=== PATIENT | female | born 1990 | race Caucasian/White ===

== ENCOUNTER 2017-04-18 22:43 | Emergency (ER) | payer OTHER ==
[2017-04-18 23:00] VITALS: TEMP 99.3
[2017-04-18] MEDS ORDERED: ONDANSETRON 4 MG/2 ML VIAL IVP STA (23:40)
[2017-04-18] MEDS ORDERED: KETOROLAC 30 MG/ML 1 ML VIAL IVP STA (23:40)
[2017-04-19 00:08] LABS: Amorphous Sediment,Urine Rare /hpf; Appearance,Urine Cloudy (Clear); Bilirubin,Urine Negative (Negative); Glucose,Urine (UA) Negative (Negative); Ketones,Urine Negative (Negative); Leukocyte Esterase,Urine Negative (Negative); Mucus,Urine Few /hpf; Nitrite,Urine Negative (Negative); Particle Count 17308; Protein,Urine Trace (Negative); Specific Gravity,Urine 1.019 (1.001-1.035); Squamous Epithelial Cell,Urine 7 /hpf (0-4); UA Billing (MACRO vs. MICRO) MICRO; Urobilinogen,Urine <2.0 mg/dL (<2.0)
--- NOTE | 2017-04-19 00:08 | ED ---
Abdominal Pain HPI - General Chief Complaint: Abdominal Pain Stated Complaint: Abd Pain Time Seen by Provider: 04/18/17 23:08 Source: patient, RN notes reviewed Mode of arrival: ambulatory Limitations: no limitations - History of Present Illness Initial Comments: Patient is a 27-year-old female since emergency room for evaluation of abdominal pain. Patient states pain began about 3 days ago. Patient states pain has been getting worse. Patient states having pain in her right lower quadrant. Patient states been nauseous with vomiting. Patient denies fevers or chills. Patient denies chest pain or shortness of breath. Patient denies any pain or burning during urination, trouble urinating or blood in urine. Patient denies history of abdominal surgeries. Patient denies abnormal vaginal discharge or vaginal discomfort. Patient denies history of STDs. - Related Data Previous Rx's Medication Instructions Recorded Ondansetron Odt [Zofran Odt] 4 mg PO Q8HR PRN #12 tab 04/19/17 Allergies Allergy/AdvReac Type Severity Reaction Status Date / Time cat dander Allergy Unknown Verified 04/18/17 23:10 cinnamon Allergy Dyspnea Verified 04/18/17 23:10 onion Allergy Unknown Verified 04/18/17 23:10 pollen extracts Allergy Unknown Verified 04/18/17 23:10 laundry soap Allergy Rash/Hives Uncoded 04/18/17 23:10 Review of Systems ROS Statement: Those systems with pertinent positive or pertinent negative responses have been documented in the HPI. ROS Other: All systems not noted in ROS Statement are negative. Past Medical History Past Medical History: Asthma, Myocardial Infarction ([place]) Additional Past Medical History / Comment(s): SVT, pt had [place] at 18 yrs old states she has had 8 CA's since 18 y/o, 2 heart ablations Last Myocardial Infarction Date:: 2008 History of Any Multi-Drug Resistant Organisms: None Reported Past Surgical History: Ablation Additional Past Surgical History / Comment(s): cardiac ablation x 2, emergency d and c for demise at age 19 Additional Past Anesthesia/Blood Transfusion Reaction / Comment(s): pt advised to have photoengraving helper consulted for any aneshesia Past Psychological History: Depression Smoking Status: Current every day smoker Past Alcohol Use History: Occasional Past Drug Use History: Marijuana - Past Family History Father Additional Family Medical History / Comment(s): Grandfather of heart attack Brother(s) Family Medical History: Myocardial Infarction ([place]), Supraventricular Tachycardia (SVT) Additional Family Medical History / Comment(s): [place] at 19 yrs old Sister(s) Additional Family Medical History / Comment(s): sister has extra heart beat General Exam - General Exam Comments Initial Comments: Laying in exam room, no acute distress. Limitations: no limitations General appearance: alert, in no apparent distress Head exam: Present: atraumatic, normocephalic, normal inspection Eye exam: Present: normal appearance ENT exam: Present: normal exam Neck exam: Present: normal inspection Respiratory exam: Present: normal lung sounds bilaterally. Absent: respiratory distress Cardiovascular Exam: Present: regular rate, normal rhythm, normal heart sounds GI/Abdominal exam: Present: soft, tenderness (RLQ), normal bowel sounds. Absent : distended, guarding, rebound, rigid External exam: Present: normal external exam Speculum exam: Present: other (strings from IUD protruding from cervix). Absent : vaginal discharge By manual exam: Present: normal by manual exam Extremities exam: Present: normal inspection Back exam: Present: normal inspection Neurological exam: Present: alert, oriented X3, CN II-XII intact, normal gait Psychiatric exam: Present: normal affect, normal mood Skin exam: Present: warm, dry, intact, normal color. Absent: rash Course Vital Signs 04/18/17 04/19/17 22:56 02:59 Temperature 99.3 F Pulse Rate 71 60 Respiratory 18 20 Rate Blood Pressure 126/76 108/55 O2 Sat by Pulse 98 99 Oximetry Medical Decision Making - Medical Decision Making patient is a 27-year-old female presents to the emergency room for evaluation of abdominal pain. WBC noted to be elevated. Patient does state she has been vomiting all day. CT abdomen/pelvis negative for any acute or concerning findings. Pelvic exam performed. No tenderness on pelvic exam. No cervical motion tenderness. No adnexal tenderness. Patient states she is feeling better after medications given. Patient is advised to follow-up with primary care provider for further evaluation. Patient states she understands everything that was discussed with her. Return parameters discussed. Case discussed with Dr. Alvares. - Lab Data Result diagrams: 04/18/17 23:59 04/18/17 23:59 Lab Results 04/18/17 04/18/17 04/18/17 Range/Units 23:35 23:35 23:59 WBC (3.8-10.6) k/uL RBC (3.80-5.40) m/uL Hgb (11.4-16.0) gm/dL Hct (34.0-46.0) % MCV (80.0-100.0) fL MCH (25.0-35.0) pg MCHC (31.0-37.0) g/dL RDW (11.5-15.5) % Plt Count (150-450) k/uL Neutrophils % % Lymphocytes % % Monocytes % % Eosinophils % % Basophils % % Neutrophils # (1.3-7.7) k/uL Lymphocytes # (1.0-4.8) k/uL Monocytes # (0-1.0) k/uL Eosinophils # (0-0.7) k/uL Basophils # (0-0.2) k/uL Sodium 140 (137-145) mmol/L Potassium 3.8 (3.5-5.1) mmol/L Chloride 106 (98-107) mmol/L Carbon Dioxide 28 (22-30) mmol/L Anion Gap 6 mmol/L BUN 12 (7-17) mg/dL Creatinine 0.50 L (0.52-1.04) mg/dL Est GFR (MDRD) Af Amer >60 (>60 ml/min/1.73 sqM) Est GFR (MDRD) Non-Af >60 (>60 ml/min/1.73 sqM) Glucose 93 (74-99) mg/dL Calcium 8.9 (8.4-10.2) mg/dL Magnesium 1.7 (1.6-2.3) mg/dL Total Bilirubin 0.1 L (0.2-1.3) mg/dL AST 23 (14-36) U/L ALT 36 (9-52) U/L Alkaline Phosphatase 71 (38-126) U/L Total Protein 6.3 (6.3-8.2) g/dL Albumin 3.6 (3.5-5.0) g/dL Amylase 43 (30-110) U/L Lipase 78 (23-300) U/L Urine Color Yellow Urine Appearance Cloudy H (Clear) Urine pH 7.0 (5.0-8.0) Ur Specific [place] 1.019 (1.001-1.035) Urine Protein Trace H (Negative) Urine Glucose (UA) Negative (Negative) Urine Ketones Negative (Negative) Urine Blood Negative (Negative) Urine Nitrite Negative (Negative) Urine Bilirubin Negative (Negative) Urine Urobilinogen <2.0 (<2.0) mg/dL Ur Leukocyte Esterase Negative (Negative) Ur Squamous Epith Cells 7 H (0-4) /hpf Amorphous Sediment Rare H (None) /hpf Urine Mucus Few H (None) /hpf Urine HCG, Qual Not Detected (Not Detectd) Trichomonas Ag (Rapid) (Negative) 04/18/17 04/19/17 Range/Units 23:59 02:35 WBC 18.9 H (3.8-10.6) k/uL RBC 4.10 (3.80-5.40) m/uL Hgb 14.0 (11.4-16.0) gm/dL Hct 41.2 (34.0-46.0) % MCV 100.6 H (80.0-100.0) fL MCH 34.1 (25.0-35.0) pg MCHC 34.0 (31.0-37.0) g/dL RDW 13.1 (11.5-15.5) % Plt Count 284 (150-450) k/uL Neutrophils % 83 % Lymphocytes % 9 % Monocytes % 5 % Eosinophils % 2 % Basophils % 0 % Neutrophils # 15.6 H (1.3-7.7) k/uL Lymphocytes # 1.7 (1.0-4.8) k/uL Monocytes # 1.0 (0-1.0) k/uL Eosinophils # 0.4 (0-0.7) k/uL Basophils # 0.0 (0-0.2) k/uL Sodium (137-145) mmol/L Potassium (3.5-5.1) mmol/L Chloride (98-107) mmol/L Carbon Dioxide (22-30) mmol/L Anion Gap mmol/L BUN (7-17) mg/dL Creatinine (0.52-1.04) mg/dL Est GFR (MDRD) Af Amer (>60 ml/min/1.73 sqM) Est GFR (MDRD) Non-Af (>60 ml/min/1.73 sqM) Glucose (74-99) mg/dL Calcium (8.4-10.2) mg/dL Magnesium (1.6-2.3) mg/dL Total Bilirubin (0.2-1.3) mg/dL AST (14-36) U/L ALT (9-52) U/L Alkaline Phosphatase (38-126) U/L Total Protein (6.3-8.2) g/dL Albumin (3.5-5.0) g/dL Amylase (30-110) U/L Lipase (23-300) U/L Urine Color Urine Appearance (Clear) Urine pH (5.0-8.0) Ur Specific [place] (1.001-1.035) Urine Protein (Negative) Urine Glucose (UA) (Negative) Urine Ketones (Negative) Urine Blood (Negative) Urine Nitrite (Negative) Urine Bilirubin (Negative) Urine Urobilinogen (<2.0) mg/dL Ur Leukocyte Esterase (Negative) Ur Squamous Epith Cells (0-4) /hpf Amorphous Sediment (None) /hpf Urine Mucus (None) /hpf Urine HCG, Qual (Not Detectd) Trichomonas Ag (Rapid) Negative (Negative) - Radiology Data Radiology results: report reviewed, image reviewed Disposition Clinical Impression: Abdominal pain Disposition: HOME SELF-CARE Condition: Good Instructions: Abdominal Pain (ED) Additional Instructions: Please follow up with primary care provider in 1-2 days for reevaluation. If any new symptom arises or symptoms worsen, return to ER as soon as possible. Prescriptions: Ondansetron Odt [Zofran Odt] 4 mg PO Q8HR PRN #12 tab PRN Reason: Pain Referrals: Luis Enrique Martinez MD [Primary Care Provider] - 1-2 days Time of Disposition: 02:49
[2017-04-19 00:11] LABS: Basophils % (A) 0 %; CH 34.4; CHCM 34.4; Eosinophils # (A) 0.4 k/uL (0-0.7); Eosinophils % (A) 2 %; HCT 41.2 % (34.0-46.0); Luc % (Auto) 1; Lymphocytes # (A) 1.7 k/uL (1.0-4.8); Lymphocytes % (A) 9 %; MCH 34.1 pg (25.0-35.0); MCV 100.6 fL (80.0-100.0); Mean Platelet Volume 8.6; Monocytes % (A) 5 %; Neutrophils # (A) 15.6 k/uL (1.3-7.7); Neutrophils % (A) 83 %; RDW 13.1 % (11.5-15.5); WBC 18.9 k/uL (3.8-10.6); WBC (Perox) 18.46
[2017-04-19 00:21] LABS: ALT 36 U/L (9-52); AST 23 U/L (14-36); Alkaline Phosphatase 71 U/L (38-126); Amylase 43 U/L (30-110); Anion Gap 6 mmol/L; Blood Urea Nitrogen 12 mg/dL (7-17); Calcium 8.9 mg/dL (8.4-10.2); Carbon Dioxide 28 mmol/L (22-30); Chloride 106 mmol/L (98-107); Glucose 93 mg/dL (74-99); Magnesium 1.7 mg/dL (1.6-2.3); Non-African American GFR(MDRD) >60 (>60 ml/min/1.73 sqM); Potassium 3.8 mmol/L (3.5-5.1); Sodium 140 mmol/L (137-145); Total Bilirubin 0.1 mg/dL (0.2-1.3); Total Protein 6.3 g/dL (6.3-8.2)
[2017-04-19] MEDS ORDERED: RX INFO: IV CONTRAST WAS GIVEN 1 EACH MISC MISCELLANE PRN (00:44)
[2017-04-19] MEDS ORDERED: SODIUM CHLORIDE 0.9% 1,000 ML IV ONE (00:46)
--- NOTE | 2017-04-19 01:57 | CT ---
EXAM: CT Abdomen and Pelvis With Intravenous Contrast CLINICAL HISTORY: Per technologist worsening umbilical abdominal pain for 3 days, low-grade fever, elevated WBC, negative hCG. TECHNIQUE: Axial computed tomography images of the abdomen and pelvis with intravenous contrast. CTDI is 5.30 mGy and DLP is 465.10 mGy-cm. This CT exam was performed using one or more of the following dose reduction techniques: automated exposure control, adjustment of the mA and/or kV according to patient size, and/or use of iterative reconstruction technique. Coronal and sagittal reconstructions are performed. COMPARISON: None available. FINDINGS: Lower thorax: No acute findings. ABDOMEN: Liver: Unremarkable. No mass. Gallbladder and bile ducts: Unremarkable. No calcified stones. No ductal dilation. Pancreas: Unremarkable. No mass. No ductal dilation. Spleen: Unremarkable. No splenomegaly. Adrenals: Unremarkable. No mass. Kidneys and ureters: Unremarkable. No solid mass. No hydronephrosis. Stomach and bowel: Unremarkable. No obstruction. No mucosal thickening. Appendix: Normal. PELVIS: Bladder: Unremarkable. No mass. Reproductive: T-shaped IUD appears to be in place.. 2.1 cm right adnexal cyst. ABDOMEN and PELVIS: Intraperitoneal space: Unremarkable. No free air. No significant fluid collection. Bones/joints: No acute fracture. No dislocation. Soft tissues: Unremarkable. Vasculature: Unremarkable. No abdominal aortic aneurysm. Lymph nodes: Unremarkable. No enlarged lymph nodes. IMPRESSION: No acute findings.
[2017-04-19 03:00] VITALS: BP 108/55; PULSE 60; RESP 20
== END 2017-04-19 03:01 | disposition home or self-care (01) ==
LOC: EC 22:43
DX: R10.31 Right lower quadrant pain (principal); R11.2 Nausea with vomiting, unspecified; F17.200 Nicotine dependence, unspecified, uncomplicated; Z91.018 Allergy to other foods; Z91.048 Other nonmedicinal substance allergy status
CPT/HCPCS: 99284; 96374; 96375; 96361; 36415; 80053; 87591; 87491; 82150; 83690; 83735; 85025; 81001; 81025; 87808; 87070; 74177; J2405; J1885; Q9967; 87205

== ENCOUNTER 2017-12-11 11:05 | Observation (INO) | payer OTHER ==
[2017-12-11] MEDS ORDERED: ASPIRIN 81 MG PO STA (11:48)
--- NOTE | 2017-12-11 11:50 | ED ---
General Adult HPI - General Chief complaint: Chest Pain Stated complaint: chest pain Time Seen by Provider: 12/11/17 11:41 Source: patient, RN notes reviewed Mode of arrival: wheelchair Limitations: no limitations - History of Present Illness Initial comments: Patient 27-year-old female who presents emergency room today with a chief complaint of chest pain that began approximately an hour ago. She does admit to a sharp type pain. Her chest. Patient states that he feels similar to pain that she's had in the past with her SVT. She doesn't that she had an ablation done moist. Admits to a history of previous heart attack. States 2 at the age of 18 and 2 at 19. 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 States she recently moved back to the area has not followed up with cardiology and approximately 3 years. - Related Data Home Medications Medication Instructions Recorded Confirmed Levonorgestrel [Mirena] 1 implant VAGINAL [id number] 12/11/17 12/11/17 Allergies Allergy/AdvReac Type Severity Reaction Status Date / Time cat dander Allergy Unknown Verified 12/11/17 11:40 cinnamon Allergy Dyspnea Verified 12/11/17 11:40 onion Allergy Unknown Verified 12/11/17 11:40 pollen extracts Allergy Unknown Verified 12/11/17 11:40 laundry soap Allergy Rash/Hives Uncoded 12/11/17 11:13 Review of Systems ROS Statement: Those systems with pertinent positive or pertinent negative responses have been documented in the HPI. ROS Other: All systems not noted in ROS Statement are negative. Past Medical History Past Medical History: Asthma, Myocardial Infarction ([place]) Additional Past Medical History / Comment(s): SVT, pt had [place] at 18 yrs old states she has had 8 AZ's since 18 y/o, 2 heart ablations Last Myocardial Infarction Date:: 2008 History of Any Multi-Drug Resistant Organisms: None Reported Past Surgical History: Ablation Additional Past Surgical History / Comment(s): cardiac ablation x 2, emergency d and c for demise at age 19 Additional Past Anesthesia/Blood Transfusion Reaction / Comment(s): pt advised to have post office manager consulted for any aneshesia Past Psychological History: Depression Smoking Status: Current every day smoker Past Alcohol Use History: Occasional Past Drug Use History: Marijuana - Past Family History Father Additional Family Medical History / Comment(s): Grandfather of heart attack Brother(s) Family Medical History: Myocardial Infarction ([place]), Supraventricular Tachycardia (SVT) Additional Family Medical History / Comment(s): [place] at 19 yrs old Sister(s) Additional Family Medical History / Comment(s): sister has extra heart beat General Exam - General Exam Comments Initial Comments: General: The patient is awake and alert, in no distress, and does not appear acutely ill. Eye: Pupils are equal, round and reactive to light, extra-ocular movements are intact. No nystagmus. There is normal conjunctiva bilaterally. No signs of icterus. Ears, nose, mouth and throat: There are moist mucous membranes and no oral lesions. Neck: The neck is supple, there is no tenderness or JVD. Cardiovascular: There is a regular rate and rhythm. No murmur, rub or gallop is appreciated. Respiratory: Lungs are clear to auscultation, respirations are non-labored, breath sounds are equal. No wheezes, stridor, rales, or rhonchi. Musculoskeletal: Normal ROM, no tenderness. Strength 5/5. Sensation intact. Pulses equal bilaterally 2+. Neurological: A&O x 3. CN II-XII intact, There are no obvious motor or sensory deficits. Coordination appears grossly intact. Speech is normal. Skin: Skin is warm and dry and no rashes or lesions are noted. Psychiatric: Cooperative, appropriate mood & affect, normal judgment. Limitations: no limitations Course Vital Signs 12/11/17 12/11/17 12/11/17 11:11 12:10 13:22 Temperature 98.1 F Pulse Rate 86 96 75 Respiratory 20 16 16 Rate Blood Pressure 134/86 132/81 129/74 O2 Sat by Pulse 99 99 99 Oximetry EKG Findings - EKG Comments: EKG Findings:: EKG performed at 1132: Normal sinus rhythm at 79 bpm. DE interval 164. QRS 102. QT/QTc 416/477. No acute ST changes. Medical Decision Making - Medical Decision Making 1327: Patient reexamined at this time shows no signs of distress. She is currently pain-free at this time. Patient was given aspirin one sublingual nitro here the emergency room. Patient's chest x-rays negative. Her labs been reviewed initial set of cardiac enzymes are negative. She admits to history of cardiac disease. Patient's symptoms started hour prior to arrival. Patient will be admitted for serial enzymes and consult cardiology. - Lab Data Result diagrams: 12/11/17 12:06 12/11/17 12:06 Lab Results 12/11/17 12/11/17 12/11/17 Range/Units 12:06 12:06 12:06 WBC 10.1 (3.8-10.6) k/uL RBC 4.75 (3.80-5.40) m/uL Hgb 15.6 (11.4-16.0) gm/dL Hct 43.5 (34.0-46.0) % MCV 91.7 (80.0-100.0) fL MCH 32.9 (25.0-35.0) pg MCHC 35.8 (31.0-37.0) g/dL RDW 12.1 (11.5-15.5) % Plt Count 303 (150-450) k/uL Neutrophils % 76 % Lymphocytes % 15 % Monocytes % 6 % Eosinophils % 1 % Basophils % 0 % Neutrophils # 7.7 (1.3-7.7) k/uL Lymphocytes # 1.5 (1.0-4.8) k/uL Monocytes # 0.7 (0-1.0) k/uL Eosinophils # 0.1 (0-0.7) k/uL Basophils # 0.0 (0-0.2) k/uL PT (9.0-12.0) sec INR (<1.2) APTT (22.0-30.0) sec Sodium 143 (137-145) mmol/L Potassium 3.8 (3.5-5.1) mmol/L Chloride 104 (98-107) mmol/L Carbon Dioxide 21 L (22-30) mmol/L Anion Gap 18 mmol/L BUN 13 (7-17) mg/dL Creatinine 0.60 (0.52-1.04) mg/dL Est GFR (CKD-EPI)AfAm >90 (>60 ml/min/1.73 sqM) Est GFR (CKD-EPI)NonAf >90 (>60 ml/min/1.73 sqM) Glucose 90 (74-99) mg/dL Calcium 10.4 H (8.4-10.2) mg/dL Magnesium 1.7 (1.6-2.3) mg/dL Total Bilirubin 1.2 (0.2-1.3) mg/dL AST 21 (14-36) U/L ALT 26 (9-52) U/L Alkaline Phosphatase 76 (38-126) U/L Total Creatine Kinase 59 (30-135) U/L CK-MB (CK-2) 0.9 (0.0-2.4) ng/mL CK-MB (CK-2) Rel Index 1.5 Troponin I <0.012 (0.000-0.034) ng/mL Total Protein 8.2 (6.3-8.2) g/dL Albumin 4.7 (3.5-5.0) g/dL Urine HCG, Qual (Not Detectd) 12/11/17 12/11/17 Range/Units 12:06 12:06 WBC (3.8-10.6) k/uL RBC (3.80-5.40) m/uL Hgb (11.4-16.0) gm/dL Hct (34.0-46.0) % MCV (80.0-100.0) fL MCH (25.0-35.0) pg MCHC (31.0-37.0) g/dL RDW (11.5-15.5) % Plt Count (150-450) k/uL Neutrophils % % Lymphocytes % % Monocytes % % Eosinophils % % Basophils % % Neutrophils # (1.3-7.7) k/uL Lymphocytes # (1.0-4.8) k/uL Monocytes # (0-1.0) k/uL Eosinophils # (0-0.7) k/uL Basophils # (0-0.2) k/uL PT 10.2 (9.0-12.0) sec INR 1.0 (<1.2) APTT 25.4 (22.0-30.0) sec Sodium (137-145) mmol/L Potassium (3.5-5.1) mmol/L Chloride (98-107) mmol/L Carbon Dioxide (22-30) mmol/L Anion Gap mmol/L BUN (7-17) mg/dL Creatinine (0.52-1.04) mg/dL Est GFR (CKD-EPI)AfAm (>60 ml/min/1.73 sqM) Est GFR (CKD-EPI)NonAf (>60 ml/min/1.73 sqM) Glucose (74-99) mg/dL Calcium (8.4-10.2) mg/dL Magnesium (1.6-2.3) mg/dL Total Bilirubin (0.2-1.3) mg/dL AST (14-36) U/L ALT (9-52) U/L Alkaline Phosphatase (38-126) U/L Total Creatine Kinase (30-135) U/L CK-MB (CK-2) (0.0-2.4) ng/mL CK-MB (CK-2) Rel Index Troponin I (0.000-0.034) ng/mL Total Protein (6.3-8.2) g/dL Albumin (3.5-5.0) g/dL Urine HCG, Qual Not Detected (Not Detectd) Disposition Clinical Impression: Chest pain Disposition: [facility] Condition: Stable Referrals: None,Stated [Primary Care Provider] - 1-2 days Time of Disposition: 13:35
[2017-12-11] MEDS: NITROGLYCERIN SL TABS 0.4 MG TAB SUBLINGUAL STA ×2 (11:59→12:08)
[2017-12-11 12:31] LABS: Basophils % (A) 0 %; Eosinophils # (A) 0.1 k/uL (0-0.7); Eosinophils % (A) 1 %; HCT 43.5 % (34.0-46.0); HGB 15.6 gm/dL (11.4-16.0); Lymphocytes # (A) 1.5 k/uL (1.0-4.8); Lymphocytes % (A) 15 %; MCH 32.9 pg (25.0-35.0); MCHC 35.8 g/dL (31.0-37.0); MCV 91.7 fL (80.0-100.0); Mean Platelet Volume 7.4; Monocytes # (A) 0.7 k/uL (0-1.0); Monocytes % (A) 6 %; Neutrophils # (A) 7.7 k/uL (1.3-7.7); Neutrophils % (A) 76 %; Platelet Count 303 k/uL (150-450); RBC 4.75 m/uL (3.80-5.40); RDW 12.1 % (11.5-15.5); WBC 10.1 k/uL (3.8-10.6)
[2017-12-11 12:41] LABS: Partial Thromboplastin Time 25.4 sec (22.0-30.0); Prothrombin Time 10.2 sec (9.0-12.0)
[2017-12-11 12:49] LABS: ALT 26 U/L (9-52); AST 21 U/L (14-36); Albumin 4.7 g/dL (3.5-5.0); Alkaline Phosphatase 76 U/L (38-126); Anion Gap 18 mmol/L; Blood Urea Nitrogen 13 mg/dL (7-17); Calcium 10.4 mg/dL (8.4-10.2); Carbon Dioxide 21 mmol/L (22-30); Chloride 104 mmol/L (98-107); Glucose 90 mg/dL (74-99); Magnesium 1.7 mg/dL (1.6-2.3); Potassium 3.8 mmol/L (3.5-5.1); Sodium 143 mmol/L (137-145); Total Bilirubin 1.2 mg/dL (0.2-1.3); Total Protein 8.2 g/dL (6.3-8.2)
--- NOTE | 2017-12-11 12:58 | XR ---
EXAMINATION TYPE: XR chest 2V DATE OF EXAM: 12/11/2017 COMPARISON: Prior chest x-ray 12/10/2014 HISTORY: Chest pain TECHNIQUE: Frontal and lateral views of the chest are obtained. FINDINGS: There is no focal air space opacity, pleural effusion, or pneumothorax seen. The cardiac silhouette size is within normal limits. There are overlying cardiac leads. The osseous structures a re intact. IMPRESSION: No acute cardiopulmonary process.
[2017-12-11 13:05] LABS: Creatine Kinase 59 U/L (30-135)
[2017-12-11 13:15] LABS: Creatine Kinase MB 0.9 ng/mL (0.0-2.4)
[2017-12-11 13:19] LABS: Troponin I <0.012 ng/mL (0.000-0.034)
[2017-12-11] MEDS ORDERED: NITROGLYCERIN SL TABS 0.4 MG TAB SUBLINGUAL PRN (13:36)
[2017-12-11] MEDS ORDERED: SODIUM CHLORIDE 0.9% 1,000 ML IV ONE (13:36)
[2017-12-11] MEDS ORDERED: ACETAMINOPHEN TAB 325 MG TAB PO PRN (14:34)
[2017-12-11] MEDS ORDERED: IBUPROFEN 400 MG TAB PO PRN (14:34)
[2017-12-11] MEDS ORDERED: oxyCODONE-APAP 5-325MG 1 EACH TAB PO PRN (14:34)
--- NOTE | 2017-12-11 14:47 | P.HPIM ---
History of Present Illness H&P Date: 12/11/17 Chief Complaint: Chest pain 27-year-old female who presents emergency room today with a chief complaint of chest pain that began approximately around 10 PM this morning. The pain felt like a pressure especially on the left side of the chest and it was radiating to both arms. Both arms felt tingly and numb as well. She had severe anxiety, palpitations and got panicky when she had the pain. She was rapidly breathing as a consequence to that pain as well. Patient claims she has history of heart attack in the past but I'm not sure if she did. She does have history of SVTs and she is status post post-2 ablation procedures. She denied having any recent illness, no fevers or chills, no cough. No nausea or vomiting. She she also noticed that her hands from the wrist down as well as her feet became bluish and then red in color. She said she had that every time she experiences the palpitations and that she had those episodes for many years. The hands and feet feel cold as well. She was never diagnosed with any autoimmune disease. The patient also admitted she used what was supposed to be methamphetamine last Sunday with her boyfriend. In the emergency department she was given some nitroglycerin and that improved her pain. Review of Systems 12 point review of system was done, negative except for HPI Past Medical History Past Medical History: Asthma, Myocardial Infarction ([place]) Additional Past Medical History / Comment(s): SVT, pt had [place] at 18 yrs old states she has had 8 IL's since 18 y/o, 2 heart ablations Last Myocardial Infarction Date:: 2008 History of Any Multi-Drug Resistant Organisms: None Reported Past Surgical History: Ablation Additional Past Surgical History / Comment(s): cardiac ablation x 2, emergency d and c for demise at age 19 Additional Past Anesthesia/Blood Transfusion Reaction / Comment(s): pt advised to have human resources benefits coordinator consulted for any aneshesia Past Psychological History: Bipolar, Depression, PTSD Additional Psychological History / Comment(s): OCD Smoking Status: Current every day smoker Past Alcohol Use History: Occasional Past Drug Use History: Marijuana Additional History: Also uses methamphetamine occasionally - Past Family History Father Additional Family Medical History / Comment(s): Grandfather of heart attack Brother(s) Family Medical History: Myocardial Infarction ([place]), Supraventricular Tachycardia (SVT) Additional Family Medical History / Comment(s): [place] at 19 yrs old Sister(s) Additional Family Medical History / Comment(s): sister has extra heart beat Medications and Allergies Home Medications Medication Instructions Recorded Confirmed Type Levonorgestrel [Mirena] 1 implant VAGINAL [id number] 12/11/17 12/11/17 History Allergies Allergy/AdvReac Type Severity Reaction Status Date / Time cat dander Allergy Unknown Verified 12/11/17 11:40 cinnamon Allergy Dyspnea Verified 12/11/17 11:40 onion Allergy Unknown Verified 12/11/17 11:40 pollen extracts Allergy Unknown Verified 12/11/17 11:40 laundry soap Allergy Rash/Hives Uncoded 12/11/17 11:13 Physical Exam Vitals: Vital Signs Temp Pulse Resp BP Pulse Ox 12/11/17 14:00 89 16 159/75 98 12/11/17 13:22 75 16 129/74 99 12/11/17 12:10 96 16 132/81 99 12/11/17 11:11 98.1 F 86 20 134/86 99 Intake and Output 12/10/17 12/11/17 12/11/17 22:59 06:59 14:59 Other: Weight 66.678 kg Constitutional: No acute distress, conversant, pleasant Eyes:Anicteric sclerae, moist conjunctiva, no lid-lag, PERRLA, ENMT: Oropharynx clear, no erythema, exudates Neck: Supple, FROM, no masses, or JVD, No carotid bruits, No thyromegaly Lungs: Clear to auscultation, Clear to percussion, Normal respiratory effort, no accessory muscle use Cardiovascular: Heart regular in rate and rhythm, No murmurs, gallops, or rubs, No peripheral edema Abdominal: Soft, Nontender, no guarding, rebound or rigidity, Normoactive bowel sounds, No hepatomegaly, No splenomegaly, No palpable mass Skin: Normal temperature, tone, texture, turgor, no induration, No subcutaneous nodules, No rash, lesions, No ulcers Extremities: Both hands and feet look red and minimally swollen. No digital cyanosis, No clubbing, Pedal pulses intact and symmetrical, Radial pulses intact and symmetrical, No calf tenderness Psychiatric: Alert and oriented to person, place and time, appropriate affect, intact judgement Neuro: Muscles Strength 5/5 in all 4 extremities, Sensation to light touch grossly present throughout, Cranial nerves II-XII grossly intact, no focal sensory deficits Results CBC & Chem 7: 12/11/17 12:06 12/11/17 12:06 Labs: Abnormal Lab Results - Last 24 Hours (Table) 12/11/17 Range/Units 12:06 Carbon Dioxide 21 L (22-30) mmol/L Calcium 10.4 H (8.4-10.2) mg/dL Assessment and Plan Plan: #1 Chest pain: Unclear etiology Could be musculoskeletal versus cardiac Admit to observation Cycle troponins Consult cardiology Nitroglycerin and [place] when necessary for pain Labs and EKG reviewed #2 Drug use: Counseled regarding quitting #3 History of SVT Monitor in telemetry
[2017-12-11 18:43] LABS: Creatine Kinase 48 U/L (30-135)
[2017-12-11 18:56] LABS: Creatine Kinase MB 0.6 ng/mL (0.0-2.4); Troponin I <0.012 ng/mL (0.000-0.034)
[2017-12-12 04:09] LABS: Basophils % (A) 0 %; Eosinophils # (A) 0.3 k/uL (0-0.7); Eosinophils % (A) 4 %; HCT 43.2 % (34.0-46.0); Lymphocytes # (A) 2.8 k/uL (1.0-4.8); Lymphocytes % (A) 36 %; MCH 31.1 pg (25.0-35.0); MCHC 32.5 g/dL (31.0-37.0); MCV 95.5 fL (80.0-100.0); Monocytes # (A) 0.8 k/uL (0-1.0); Monocytes % (A) 10 %; Neutrophils # (A) 3.6 k/uL (1.3-7.7); Neutrophils % (A) 47 %; Platelet Count 286 k/uL (150-450); RBC 4.52 m/uL (3.80-5.40); RDW 12.1 % (11.5-15.5); WBC 7.7 k/uL (3.8-10.6)
[2017-12-12 04:21] LABS: Anion Gap 15 mmol/L; Blood Urea Nitrogen 16 mg/dL (7-17); Calcium 9.9 mg/dL (8.4-10.2); Carbon Dioxide 25 mmol/L (22-30); Chloride 103 mmol/L (98-107); Cholesterol 167 mg/dL (<200); Glucose 85 mg/dL (74-99); HDL Cholesterol 69 mg/dL (40-60); LDL Cholesterol,Calculated 86 mg/dL (0-99); Magnesium 1.9 mg/dL (1.6-2.3); Phosphorus 4.9 mg/dL (2.5-4.5); Potassium 3.9 mmol/L (3.5-5.1); Sodium 143 mmol/L (137-145); Triglycerides 62 mg/dL (<150)
[2017-12-12 04:34] LABS: Creatine Kinase 40 U/L (30-135)
[2017-12-12 04:46] LABS: Creatine Kinase MB 0.5 ng/mL (0.0-2.4); Troponin I <0.012 ng/mL (0.000-0.034)
[2017-12-12 07:59] VITALS: RESP 18
[2017-12-12] MEDS ORDERED: ASPIRIN 325 MG TAB PO SCH (09:00)
[2017-12-12 11:55] VITALS: BP 110/59; PULSE 62; TEMP 98.6
--- NOTE | 2017-12-12 12:27 | ECHOF ---
Referral Reason:chest pain MEASUREMENTS -------- HEIGHT: 165.1 cm WEIGHT: 67.6 kg BP: 112/61 RVIDd: 2.8 cm (< 3.3) IVSd: 0.9 cm (0.6 - 1.1) LVIDd: 4.2 cm (3.9 - 5.3) LVPWd: 0.9 cm (0.6 - 1.1) IVSs: 1.3 cm LVIDs: 2.4 cm LVPWs: 1.4 cm LA Diam: 2.8 cm (2.7 - 3.8) Ao Diam: 2.9 cm (2.0 - 3.7) AV Cusp: 1.9 cm (1.5 - 2.6) MV EXCURSION: 19.458 mm (> 18.000) MV EF SLOPE: 106 mm/s (70 - 150) EPSS: 0.4 cm MV E Scott: 1.07 m/s MV DecT: 219 ms MV A Scott: 0.62 m/s MV E/A Ratio: 1.74 FINDINGS -------- Sinus rhythm. This was a technically good study. The left ventricular size is normal. Left ventricular wall thickness is normal. Overall left vent ricular systolic function is normal with, an EF between 60 - 65 %. The right ventricle is normal in size. The left atrial size is normal. The right atrium is normal in size. The aortic valve is trileaflet and appears structurally normal. The mitral valve is normal. No regurgitation noted There is no pulmonic regurgitation present. The aortic root size is normal. Normal inferior vena cava with normal inspiratory collapse consistent with estimated right atrial pre ssure of 5 mmHg. There is no pericardial effusion. CONCLUSIONS -------- 1. Sinus rhythm. 2. This was a technically good study. 3. The left ventricular size is normal. 4. Left ventricular wall thickness is normal. 5. Overall left ventricular systolic function is normal with, an EF between 60 - 65 %. 6. The right ventricle is normal in size. 7. The left atrial size is normal. 8. The right atrium is normal in size. 9. The aortic valve is trileaflet and appears structurally normal. 10. The mitral valve is normal. 11. No regurgitation noted 12. There is no pulmonic regurgitation present. 13. The aortic root size is normal. 14. Normal inferior vena cava with normal inspiratory collapse consistent with estimated right atrial pressure of 5 mmHg. 15. There is no pericardial effusion. RADIO INTERFERENCE SUPERVISOR: Milena Holland RDCS
--- NOTE | 2017-12-12 13:20 | ECHOS ---
STRESS ECHOCARDIOGRAM DATE OF SERVICE: 12/12/2017 INDICATIONS: Chest pain. MEDICATIONS: BASELINE HEART RATE: 92 BASELINE BLOOD PRESSURE: 142/77 MAXIMUM HEART RATE: 178 MAXIMUM BLOOD PRESSURE: 173/80 85% MPHR: 165 100% MPHR: 194 METS: 10.9 MAXIMUM STAGE REACHED: IV TOTAL EXERCISE TIME: 9-1/2 minutes CLINICAL INFORMATION: Baseline EKG revealed normal sinus rhythm without significant ST-T changes. Patient walked on standard Alejo protocol for 9-1/2 minutes achieved a maximum heart rate of 178 beats per minute. She did not have any angina or arrhythmia. EKG did not reveal any ST-segment changes to indicate ischemia. This is a negative stress test with good exercise capacity. Baseline echo images revealed normal wall motion and wall thickening of all segments. At peak exercise, there was good augmentation of left ventricular wall motion and wall thickening of all segments suggesting that there is no evidence of any stress-induced ischemia on this study. FINAL IMPRESSION: 1. Good exercise capacity with a negative stress test by EKG criteria at 9-1/2 minutes of exercise. 2. Normal stress echocardiogram. MMODL / IJN: [id number] /
--- NOTE | 2017-12-12 14:29 | P.DS ---
Providers Date of admission: 12/11/17 14:34 Expected date of discharge: 12/12/17 Attending physician: Sagrario Castañeda MD Consults: 12/11/17 13:36 Consult Physician Stat Consulting Provider: [facility] Consult Reason/Comments: chest pain Do you want consulting provider notified?: Yes Primary care physician: Stated None - Discharge Diagnosis(es) (1) Non-cardiac chest pain Current Visit: Yes Status: Acute (2) Asthma Current Visit: Yes Status: Acute (3) H/O supraventricular tachycardia Current Visit: Yes Status: Acute Hospital Course: patient is a 27-year-old female with a past medical history of asthma , SVT, and reported 8 myocardial infarctions who presented to the ER with complaints of chest pain. On arrival to the ER her vital signs were within normal limits pulse was 86 and blood pressure was 135/86. Initial laboratory analysis was essentially unremarkable. Her first troponin was negative. EKG showed normal sinus rhythm at a rate of [address]-T wave changes. She was given a dose of nitro which improved her pain. She was admitted for observation. Her troponins were cycled and remained negative. She was seen by cardiology. She underwent a resting echo which was within normal limits and showed an ejection fraction of 60-65%. She underwent an exercise stress echo which showed no signs of stress-induced myocardial ischemia. Her cholesterol profile was checked was within normal limits. Telemetry was unremarkable. She was determined stable for discharge home. We discussed possible causes of non cardiac chest pain including muscle strain, anxiety, and gerd. She states that she just moved here and is going to go back to [place] because her email campaign specialist there was the only one who could ever find anything. She states that she does not have a PCP in the area and she was given a referral to Dr. Manriquez. Patient seen and examined at bedside. she is sleeping on my arrival to the room. She is not having any current chest pain. She is frustrated that nothing was found. I have offered to send results to her email campaign specialist in [place], but she declined and stated she would request them through medical records. Vital signs reviewed and stable. General: non toxic, no distress, appears at stated age Derm: warm, dry Head: atraumatic, normocephalic, symmetric Eyes: EOMI, no lid lag, anicteric sclera Mouth: no lip lesion, mucus membranes moist Cardiovascular: S1S2 reg, no murmur, positive posterior tibial pulse bilateral, Lungs: CTA bilateral, no rhonchi, no rales , no accessory muscle use Abdominal: soft, nontender to palpation, no guarding, no appreciable organomegaly Ext: no gross muscle atrophy, no edema, no contractures Neuro: CN II-XI grossly intact, no focal neuro deficits Psych: Alert, oriented, appropriate affect A total of 20 minutes of time were spent preparing this complex discharge summary. Pertinent Studies: stress echocardiogram-and she stage IV of Alejo protocol with no signs of stress -induced myocardial ischemia Echocardiogram-ejection fraction 60-65%, sinus rhythm Patient Condition at Discharge: Stable Plan - Discharge Summary Discharge Rx Participant: Yes New Discharge Prescriptions: No Action Levonorgestrel [Mirena] 1 implant VAGINAL [id number] Discharge Medication List Levonorgestrel [Mirena] 1 implant VAGINAL [id number] 12/11/17 [History] Follow up Appointment(s)/Referral(s): None,Stated [Primary Care Provider] - 1-2 days
--- NOTE | 2017-12-12 20:41 | CONS ---
CONSULTATION This is a 27-year-old lady who used to live in [place], moved to [facility] and again came back here recently. She does not have a primary care physician at this time. She came into the hospital complaining of chest pain, sharp in nature, on and off without obvious precipitating factors. She claims she has a history of SVT, had an ablation when she was 18 years of age. Details unavailable. She claims she had a heart attack. Most of her history is rather sketchy and seems unreliable to me. Specifically, the story about myocardial infarction seems very sketchy. It is possible she may have had SVT and ablation, but this is not verified again. The quality of her pain seems atypical. She is resting comfortably without symptoms. PAST MEDICAL HISTORY: Remarkable for SVT ablation, unverified, question of bronchial asthma. She smokes quite heavily. She is down to less than 1 pack. She uses marijuana occasionally and alcohol rarely. MEDICATIONS: Include some vaginal implant. ALLERGIES: No known drug allergies. EXAMINATION: Blood pressure is 118/70, pulse rate 70 per minute, regular. HEENT: Unremarkable. Fundus was not examined by me. NECK: Supple. No JVD. I do not hear a carotid bruit. There is no thyromegaly. Heart reveals S1, S2 heard normally in all areas without a rub, murmur or gallop. Lungs are clear. Abdomen is soft, nontender. Lower extremities reveal normal pulses, no edema. Central nervous system is normal. EKG revealed sinus mechanism, no acute changes, minor nonspecific ST abnormality. IMPRESSION: 1. Atypical chest pain with normal troponins. 2. Remote history of supraventricular tachycardia with ablation, details unclear. No evidence of any arrhythmia here. 3. History of tobacco abuse. RECOMMENDATIONS: Patient has been counseled regarding the need to quit smoking and risk factor modification issues were reinforced. I will perform a stress echo and if this is normal, she can be discharged. I discussed my thoughts in detail with the patient and explained to her that she should follow up with her primary care physician if the stress test is normal and work with smoking cessation. Thank you very much for the consult. MMODL / IJN: [id number] /
== END 2017-12-12 15:21 | disposition home or self-care (01) ==
LOC: EC 11:05 → 3OBS 14:34
PROVIDERS: ADMIT Internal Medicine; ATTEND Internal Medicine
DX: R07.89 Other chest pain (principal); J45.909 Unspecified asthma, uncomplicated; R00.2 Palpitations; F41.9 Anxiety disorder, unspecified; F15.90 Other stimulant use, unspecified, uncomplicated; R20.2 Paresthesia of skin; R20.0 Anesthesia of skin; F43.10 Post-traumatic stress disorder, unspecified; F42.9 Obsessive-compulsive disorder, unspecified; F31.9 Bipolar disorder, unspecified; F12.90 Cannabis use, unspecified, uncomplicated; F17.210 Nicotine dependence, cigarettes, uncomplicated; Z91.018 Allergy to other foods; Z91.048 Other nonmedicinal substance allergy status; I25.2 Old myocardial infarction; Z86.79 Personal history of other diseases of the circulatory system; Z82.49 Family history of ischemic heart disease and other diseases of the circulatory system
CPT/HCPCS: 99285 ×2; 36415; 93005; 93017; 93306; 93350; 80061; 80053; 80048; 82550 ×2; 82553 ×2; 83735 ×2; 84100; 84484 ×2; 85025 ×2; 85610; 85730; 81025; 71046; G0378 ×2

== ENCOUNTER 2018-02-21 12:57 | Emergency (ER) | payer OTHER ==
[2018-02-21 13:02] VITALS: RESP 16
--- NOTE | 2018-02-21 13:42 | XR ---
EXAMINATION TYPE: XR chest 2V DATE OF EXAM: 02/21/2018 COMPARISON: NONE HISTORY: Chest pain TECHNIQUE: Frontal and lateral views of the chest are obtained. FINDINGS: There is no focal air space opacity. No evidence for pneumothorax. No pleural effusion. The cardiac silhouette size is within normal limits. The osseous structures are grossly intact. IMPRESSION: 1. No acute cardiopulmonary process.
--- NOTE | 2018-02-21 14:14 | ED ---
General Adult HPI - General Chief complaint: Upper Respiratory Infection Stated complaint: CHEST CONGESTION, SOB Time Seen by Provider: 02/21/18 13:17 Source: patient, RN notes reviewed Mode of arrival: EMS Limitations: no limitations - History of Present Illness Initial comments: 27-year-old female presents to the emergency department for a chief complaint of cough and congestion 3 days. Patient was transferred by EMS. Patient states she feels like her chest is congested. Patient is a smoker. Patient denies a history of asthma. Patient also states she feels like she has nasal congestion. Patient denies headache or sore throat. Patient states she has had low-grade fevers of 99 at home. Patient denies any abdominal pain or nausea or vomiting. Patient denies any shortness of breath or difficulty breathing. Patient states earlier today she did feel slightly short of breath but that has resolved. EMS states that they heard some wheezing in her lower lungs and gave her breathing treatment which helped with the wheezing. Patient has no other complaints at this time including shortness of breath, chest pain, abdominal pain, nausea or vomiting, headache, or visual changes. - Related Data Home Medications Medication Instructions Recorded Confirmed Levonorgestrel [Mirena] 1 implant VAGINAL [id number] 12/11/17 02/21/18 Previous Rx's Medication Instructions Recorded Albuterol Inhaler [Ventolin Hfa 1 - 2 puff INHALATION Q6HR PRN #1 02/21/18 Inhaler] inhaler guaiFENesin [Mucinex] 1,200 mg PO BID PRN #20 tab.er.12h 02/21/18 methylPREDNISolone Dose Pack 4 mg PO DIRECTED #21 package 02/21/18 [Medrol Dose Pack] Allergies Allergy/AdvReac Type Severity Reaction Status Date / Time cat dander Allergy Unknown Verified 02/21/18 13:02 cinnamon Allergy Dyspnea Verified 02/21/18 13:02 onion Allergy Unknown Verified 02/21/18 13:02 pollen extracts Allergy Unknown Verified 02/21/18 13:02 laundry soap Allergy Rash/Hives Uncoded 02/21/18 13:02 Review of Systems ROS Statement: Those systems with pertinent positive or pertinent negative responses have been documented in the HPI. ROS Other: All systems not noted in ROS Statement are negative. Past Medical History Past Medical History: Myocardial Infarction ([place]), Syncope Additional Past Medical History / Comment(s): SVT, pt had HI at 18 yrs old states she has had 4 HI's since 18 y/o, 2 heart ablations, 2014 had brafycardia/ syncope, uti, past ovarian cyst, pleurisy Last Myocardial Infarction Date:: 2008 History of Any Multi-Drug Resistant Organisms: None Reported Past Surgical History: Ablation Additional Past Surgical History / Comment(s): cardiac ablation x 2, emergency D &C, VAGINAL IMPLANT-MIRENA Past Anesthesia/Blood Transfusion Reactions: No Reported Reaction Additional Past Anesthesia/Blood Transfusion Reaction / Comment(s): pt advised to have industrial green systems designer consulted for any aneshesia Past Psychological History: Bipolar, Depression, PTSD Smoking Status: Current every day smoker Past Alcohol Use History: None Reported Past Drug Use History: Marijuana - Past Family History Father Additional Family Medical History / Comment(s): Grandfather of heart attack Brother(s) Family Medical History: Myocardial Infarction ([place]), Supraventricular Tachycardia (SVT) Additional Family Medical History / Comment(s): HI at 19 yrs old Sister(s) Additional Family Medical History / Comment(s): sister has extra heart beat General Exam Limitations: no limitations General appearance: alert, in no apparent distress Head exam: Present: atraumatic, normocephalic, normal inspection Eye exam: Present: normal appearance, PERRL, EOMI. Absent: scleral icterus, conjunctival injection, periorbital swelling ENT exam: Present: normal exam, normal oropharynx, mucous membranes moist, TM's normal bilaterally, normal external ear exam, other (Patient does appear to have mild sinus congestion.) Neck exam: Present: normal inspection, full ROM. Absent: tenderness, meningismus, lymphadenopathy Respiratory exam: Present: normal lung sounds bilaterally. Absent: respiratory distress, wheezes, rales, rhonchi, stridor Cardiovascular Exam: Present: regular rate, normal rhythm, normal heart sounds. Absent: bradycardia, tachycardia, irregular rhythm Course Vital Signs 02/21/18 12:59 Temperature 98.5 F Pulse Rate 71 Respiratory 16 Rate Blood Pressure 127/86 O2 Sat by Pulse 97 Oximetry Medical Decision Making - Medical Decision Making 27-year-old female presents to the emergency department for a chief complaint of sinus and chest congestion x 3 days. Patient denies chest pain. Patient states she was short of breath earlier but feels good now. Patient denies history of asthma. Patient is a smoker. Patient states she has been sick for 3 days. Only low-grade fevers not higher than 99 F in the past couple days. Patient has not taken anything but was given a breathing treatment by EMS. Vitals within normal limits. Patient is afebrile and 97% on room air. On exam lungs are clear to auscultation bilaterally. Non-erythematous throat. TMs within normal limits. Patient does appear slightly congested and has a mild cough. Chest x-ray showed no acute cardiopulmonary process. Influenza is negative. Patient likely has a viral upper respiratory infection as it has only been 3 days of symptoms. Patient denies any chance of . Patient will be given steroids and an albuterol inhaler. She is to follow up with primary care in 1-2 days. She will return to the emergency Department if she develops increasing shortness of breath or fever or other worsening symptoms. She will take Motrin and Tylenol for low fevers. - Lab Data Lab Results 02/21/18 Range/Units 13:50 Influenza Type A RNA Not Detected (Not Detectd) Influenza Type B (PCR) Not Detected (Not Detectd) Disposition Clinical Impression: Upper respiratory infection Disposition: HOME SELF-CARE Condition: Good Instructions: Upper Respiratory Infection (ED) Additional Instructions: Please take steroid pack as directed. Use Mucinex and inhaler as needed. Return to the emergency department if you have any worsening symptoms, high fevers, or develops shortness of breath. Otherwise follow-up with primary care in 1-2 days. Prescriptions: Albuterol Inhaler [Ventolin Hfa Inhaler] 1 - 2 puff INHALATION Q6HR PRN #1 inhaler PRN Reason: Shortness Of Breath guaiFENesin [Mucinex] 1,200 mg PO BID PRN #20 tab.er.12h PRN Reason: Congestion methylPREDNISolone Dose Pack [Medrol Dose Pack] 4 mg PO DIRECTED #21 package Is patient prescribed a controlled substance at d/c from ED?: No Referrals: Eduar Crane MD [STAFF PHYSICIAN] - 1-2 days Time of Disposition: 14:51
[2018-02-21 15:23] VITALS: BP 130/70; PULSE 78; TEMP 97.9
== END 2018-02-21 15:23 | disposition home or self-care (01) ==
LOC: EC 12:57
DX: J06.9 Acute upper respiratory infection, unspecified (principal); F17.200 Nicotine dependence, unspecified, uncomplicated; Z91.018 Allergy to other foods; Z91.048 Other nonmedicinal substance allergy status; Z97.5 Presence of (intrauterine) contraceptive device; Z98.890 Other specified postprocedural states
CPT/HCPCS: 71046; 87502; 99284

== ENCOUNTER 2018-11-06 22:48 | Emergency (ER) | payer OTHER ==
[2018-11-06 22:56] VITALS: TEMP 98.3
[2018-11-07 00:47] VITALS: BP 128/65; PULSE 85; RESP 20
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
== END 2018-11-07 00:35 | disposition left against medical advice (07) ==
LOC: EC 22:48
DX: R07.89 Other chest pain (principal); R00.2 Palpitations; S79.912A Unspecified injury of left hip, initial encounter; I25.2 Old myocardial infarction; F17.200 Nicotine dependence, unspecified, uncomplicated; Z86.79 Personal history of other diseases of the circulatory system; Z98.890 Other specified postprocedural states; Z82.49 Family history of ischemic heart disease and other diseases of the circulatory system; Z91.048 Other nonmedicinal substance allergy status; Z91.018 Allergy to other foods; W22.8XXA Striking against or struck by other objects, initial encounter; Y92.89 Other specified places as the place of occurrence of the external cause
CPT/HCPCS: 93005; 99285